=== PATIENT | male | born 1945 | race Caucasian/White ===

== ENCOUNTER 2025-04-26 23:41 | Inpatient (IN) | payer OTHER ==
[2025-04-27] MEDS ORDERED: FAMOTIDINE 20 MG/50 ML IVPB 20 MG/50 ML MG IVPB ONE (00:36)
[2025-04-27] MEDS ORDERED: ACETAMINOPHEN INJECTION 100 ML ONE ×2 (00:36→04:22)
[2025-04-27] MEDS ORDERED: MAG HYDROX/AL HYDROX/SIMETH 30 ML UNIT-DOSE CUP ONE (00:36)
[2025-04-27] MEDS: MAG HYDROX/AL HYDROX/SIMETH -MYLANTA- ORAL SUSPENSION PO ONE (00:47)
[2025-04-27] MEDS: FAMOTIDINE 20 MG/50 ML IVPB 20 MG/50 ML MG IVPB ONE (01:07)
[2025-04-27] MEDS: ACETAMINOPHEN 1000 MG/100 ML BAG IVPB ONE ×2 (01:07→04:28)
[2025-04-27] MEDS: SODIUM CHLORIDE 1,000 ML IV STA ×2 (01:07→04:28)
[2025-04-27 01:20] LABS: ABSOLUTE IMMATURE GRANULOCYTES 0.03 x10^3/uL (0.0-0.031); BASOPHILS # 0.04 x10^3/uL (0.01-0.08); EOSINOPHIL % 1.3 % (0.8-7.0); EOSINOPHILS # 0.14 x10^3/uL (0.04-0.54); HEMATOCRIT 41.6 % (40.1-51.0); HEMOGLOBIN 13.4 g/dL (13.7-17.5); MCHC 32.2 g/dl (32.3-36.5); MEAN CELL VOLUME 98.6 fl (79.0-92.2); MEAN PLT VOLUME 11.5 fl (9.4-12.4); MONOCYTE # 1.08 x10^3/uL (0.30-0.82); MONOCYTE % 10.2 % (5.3-12.2); PLATELET COUNT 168 x10^3/uL (163-337); RDW 13.7 % (12.6-16.6)
[2025-04-27 01:38] LABS: CHLORIDE 109 mmol/L (98-107); POTASSIUM 4.8 mmol/L (3.5-5.1); SODIUM 142 mmol/L (136-145)
[2025-04-27 01:41] LABS: ALBUMIN 3.5 g/dl (3.4-5.0); ANION GAP 6 mmol/L (4-13); BLOOD UREA NITROGEN 16.1 mg/dL (7-18); CALCIUM 9.1 mg/dL (8.5-10.1); CO2 27 mmol/L (21-32); GLUCOSE,RANDOM 136 mg/dL (74-106)
[2025-04-27 01:44] LABS: CREATININE 1.2 mg/dL (0.55-1.3); SGOT/AST 18 U/L (15-37); SGPT/ALT 21 U/L (13-61)
[2025-04-27 01:45] LABS: BILIRUBIN,TOTAL 0.2 mg/dL (0.2-1)
[2025-04-27 01:47] LABS: ALK PHOS 106 U/L (45-117)
[2025-04-27 02:37] LABS: HCV DIAGNOSTIC IN-HOUSE W/RFLX NON-REACTIVE (NONREACTIVE)
[2025-04-27 02:39] LABS: HIV INTERPRETATION NEGATIVE (NEGATIVE)
[2025-04-27 02:42] LABS: INR 1.03 (0.83-1.09); PROTHROMBIN TIME (PATIENT) 11.3 SEC (9.7-13.0)
[2025-04-27 02:45] LABS: ACTIVATED PTT 36.4 SECONDS (25.2-36.5)
[2025-04-27] MEDS ORDERED: oxyCODONE HCL 5 MG TABLET PO PRN (05:38)
[2025-04-27] MEDS: SODIUM CHLORIDE 1,000 ML IV SCH (06:25)
[2025-04-27 09:00] VITALS: BMI 32.3
[2025-04-27 09:34] LABS: LDL CHOLESTEROL (ONLY SJRH) 101 mg/dL (5-100)
[2025-04-27 09:35] LABS: HDL CHOLESTEROL 50 mg/dL (40-60)
[2025-04-27 09:58] LABS: CHOLESTEROL 167 mg/dL (50-200)
[2025-04-27] MEDS: PANTOPRAZOLE SODIUM 40 MG VIAL IVPUSH SCH (10:04)
[2025-04-27] MEDS: ENOXAPARIN NA (PORCINE) 40 MG/0.4 ML DISP.SYRIN SQ SCH (10:04)
[2025-04-27] MEDS: LACTATED RINGERS SOLUTION 1,000 ML/1,000 ML INFUS.BAG IV SCH (13:48)
[2025-04-27] MEDS: BENZOCAINE/MENTH/CETYLPYRD CL 1 EACH LOZENGE MM PRN (17:39)
[2025-04-28 08:17] LABS: ABSOLUTE IMMATURE GRANULOCYTES 0.02 x10^3/uL (0.0-0.031); BASOPHILS # 0.05 x10^3/uL (0.01-0.08); EOSINOPHIL % 2.9 % (0.8-7.0); EOSINOPHILS # 0.27 x10^3/uL (0.04-0.54); HEMOGLOBIN 13.2 g/dL (13.7-17.5); MCHC 32.2 g/dl (32.3-36.5); MEAN PLT VOLUME 11.6 fl (9.4-12.4); MONOCYTE # 0.78 x10^3/uL (0.30-0.82); MONOCYTE % 8.3 % (5.3-12.2); PLATELET COUNT 181 x10^3/uL (163-337); RDW 13.5 % (12.6-16.6)
[2025-04-28 08:28] LABS: INR 1.1 (0.83-1.09); PROTHROMBIN TIME (PATIENT) 12.1 SEC (9.7-13.0)
[2025-04-28 08:32] LABS: POTASSIUM 4.7 mmol/L (3.5-5.1)
[2025-04-28 08:37] LABS: ALBUMIN 3.5 g/dl (3.4-5.0)
[2025-04-28 08:38] LABS: BLOOD UREA NITROGEN 10.8 mg/dL (7-18); CALCIUM 9.9 mg/dL (8.5-10.1); MAGNESIUM 2.1 mg/dL (1.8-2.4)
[2025-04-28 08:42] LABS: BILIRUBIN,TOTAL 0.7 mg/dL (0.2-1); TOT PROT 7.2 g/dl (6.4-8.2)
[2025-04-28] MEDS: guaiFENesin/D-METHORPHAN HB 10 ML UNIT-DOSE CUPS PO PRN (18:20)
[2025-04-29 09:31] LABS: ABSOLUTE IMMATURE GRANULOCYTES 0.02 x10^3/uL (0.0-0.031); BASOPHILS # 0.04 x10^3/uL (0.01-0.08); EOSINOPHILS # 0.08 x10^3/uL (0.04-0.54); HEMATOCRIT 38.6 % (40.1-51.0); HEMOGLOBIN 12.6 g/dL (13.7-17.5); MCHC 32.6 g/dl (32.3-36.5); MEAN CELL VOLUME 97.7 fl (79.0-92.2); MEAN PLT VOLUME 11.3 fl (9.4-12.4); MONOCYTE # 0.71 x10^3/uL (0.30-0.82); MONOCYTE % 8.7 % (5.3-12.2); PLATELET COUNT 172 x10^3/uL (163-337); RDW 13.3 % (12.6-16.6)
[2025-04-29 10:46] LABS: MAGNESIUM 2.3 mg/dL (1.8-2.4)
[2025-04-29 20:49] LABS: POTASSIUM 4.2 mmol/L (3.5-5.1)
[2025-04-29 20:51] LABS: CALCIUM 9.5 mg/dL (8.5-10.1)
[2025-04-29 20:52] LABS: ALBUMIN 3.4 g/dl (3.4-5.0); BLOOD UREA NITROGEN 12.6 mg/dL (7-18)
[2025-04-29 20:55] LABS: CREATININE 1.1 mg/dL (0.55-1.3)
[2025-04-29 20:56] LABS: BILIRUBIN,TOTAL 0.3 mg/dL (0.2-1); TOT PROT 6.9 g/dl (6.4-8.2)
[2025-04-30 07:33] LABS: ABSOLUTE IMMATURE GRANULOCYTES 0.03 x10^3/uL (0.0-0.031); BASOPHILS # 0.04 x10^3/uL (0.01-0.08); EOSINOPHIL % 3.5 % (0.8-7.0); EOSINOPHILS # 0.26 x10^3/uL (0.04-0.54); HEMATOCRIT 41.1 % (40.1-51.0); HEMOGLOBIN 13.3 g/dL (13.7-17.5); MCHC 32.4 g/dl (32.3-36.5); MEAN CELL VOLUME 96.7 fl (79.0-92.2); MEAN PLT VOLUME 10.7 fl (9.4-12.4); MONOCYTE # 0.65 x10^3/uL (0.30-0.82); MONOCYTE % 8.8 % (5.3-12.2); PLATELET COUNT 182 x10^3/uL (163-337); RDW 13.5 % (12.6-16.6)
[2025-04-30 07:35] LABS: HEMATOCRIT 41.4 % (40.1-51.0); HEMOGLOBIN 13.6 g/dL (13.7-17.5); MCHC 32.9 g/dl (32.3-36.5); MEAN CELL VOLUME 96.7 fl (79.0-92.2); MEAN PLT VOLUME 10.4 fl (9.4-12.4); PLATELET COUNT 176 x10^3/uL (163-337); RDW 13.4 % (12.6-16.6)
[2025-04-30 07:54] LABS: POTASSIUM 3.9 mmol/L (3.5-5.1)
[2025-04-30 07:59] LABS: ALBUMIN 3.6 g/dl (3.4-5.0); BLOOD UREA NITROGEN 14.1 mg/dL (7-18); MAGNESIUM 2.3 mg/dL (1.8-2.4)
[2025-04-30 08:02] LABS: CREATININE 1.2 mg/dL (0.55-1.3)
[2025-04-30 08:04] LABS: BILIRUBIN,TOTAL 0.3 mg/dL (0.2-1); TOT PROT 7.3 g/dl (6.4-8.2)
[2025-04-30] MEDS: ACETAMINOPHEN 325 MG TABLET (FP) PO PRN (10:48)
[2025-04-30 18:15] VITALS: BP 146/84; PULSE 69; RESP 20; TEMP 98.1
[2025-05-02 14:06] LABS: IG G QN IMMUNOGLOBULIN 1109 mg/dL (603-1613); IGG SUBCLASS 1 560 mg/dL (248-810); IGG SUBCLASS 3 62 mg/dL (15-102)
== END 2025-04-30 18:49 | disposition home or self-care (01) | DRG 438 ==
LOC: JER 23:41 → JERBED 04-27 05:30 → INTOOBSV 04-27 05:30 → J7W 04-27 06:42 → OBSVTOIN 04-27 09:36 → J7W 04-28 13:58
PROVIDERS: ADMIT Hospitalist; ATTEND Physician Assistant
DX: K85.90 Acute pancreatitis without necrosis or infection, unspecified (principal); U07.1 COVID-19; K86.2 Cyst of pancreas; I10 Essential (primary) hypertension; E78.5 Hyperlipidemia, unspecified; N40.0 Benign prostatic hyperplasia without lower urinary tract symptoms; D64.9 Anemia, unspecified; D72.829 Elevated white blood cell count, unspecified; N28.1 Cyst of kidney, acquired; N26.1 Atrophy of kidney (terminal)
CPT/HCPCS: 0241U-QW; 36415; 71045-TC-FY; 74177-TC; 74181-TC; 76705-TC; 80053; 80061; 82784; 82787; 83605; 83690; 83735; 83883; 84153; 84484; 85025; 85027; 85610; 85730; 86803; 86850; 86900; 86901; 87389; 93005; 93010; 99285-25; G0378; J0131; Q9967